=== PATIENT | male | born 1955 | race Caucasian/White ===

== ENCOUNTER 2017-08-02 08:17 | Emergency (ER) | payer OTHER ==
[~2017-08-02] VITALS: Ht 172.7 cm; Wt 60.1 kg
[2017-08-02 08:25] VITALS: TEMP 37.1; Ht 172.7 cm; Wt 60.1 kg
[2017-08-02 09:02] LABS: BASO % 0.6 %; BASO ABS # 0.04 K/uL (0-0.2); COMPLETE YES; EOS % 3.4 %; HEMATOCRIT 41.6 % (42-52); IG% 0.3 %; LYMPH % 24.6 %; LYMPH ABS # 1.67 K/uL (1.2-3.4); MEAN CELL VOLUME 91.4 fL (80-100); MEAN CORPUSCULAR HEMOGLOBIN 32.1 pg (25-34); MEAN CORPUSCULAR HGB CONC 35.1 g/dl (32-36); MEAN PLATELET VOLUME 9.7 fL (7.4-10.4); MONO % 11.4 %; NEUT % 59.7 %; PLATELET COUNT 257 K/uL (130-400); RED BLOOD COUNT 4.55 M/uL (4.7-6.1); WHITE BLOOD COUNT 6.78 K/uL (4.8-10.8)
[2017-08-02 09:10] LABS: BUN/CREATININE RATIO 17.7 (10-20); CALCIUM 9.6 mg/dl (8.5-10.1); CREATININE 0.82 mg/dl (0.60-1.40); POTASSIUM 3.7 mmol/L (3.5-5.1)
[2017-08-02 09:11] LABS: C-REACTIVE PROTEIN 0.82 mg/dl (0-0.29)
--- NOTE | 2017-08-02 09:35 | DIAGNOSTIC IMAGING REPORT ---
LEFT KNEE 3 VIEWS HISTORY: 61 years-old Male left knee pain, no injury acute left knee pain without reported trauma. COMPARISON: None available TECHNIQUE: 3 views of the left knee FINDINGS: Mild medial and patellofemoral compartment osteoarthritis is noted with no significant degenerative changes of the lateral compartment. Mild medial soft tissue swelling is noted. There is a questioned 2 mm loose body of the medial patellofemoral joint. No large joint effusion. No acute fracture or dislocation. IMPRESSION: 1. Mild medial soft tissue swelling without acute fracture or dislocation. 2. Mild medial and patellofemoral compartment osteoarthritis with suggested 2 mm loose body of the medial patellofemoral joint. The above report was generated using voice recognition software. It may contain grammatical, syntax or spelling errors. Electronically signed by: Ronak Machdao M.D. 08/02/2017 9:33 AM Dictated Date/Time: 08/02/2017 9:31 AM
--- NOTE | 2017-08-02 10:02 | DIAGNOSTIC IMAGING REPORT ---
BILATERAL LOWER EXTREMITY VENOUS DOPPLER HISTORY: Acute left lower extremity pain and swelling. left knee pain, no injury. Initial exam. COMPARISON STUDY: None. FINDINGS: There is normal compressibility, flow, and augmentation within the left lower extremity deep venous system. IMPRESSION: No sonographic evidence of deep venous thrombosis within the left lower extremity. Electronically signed by: Ronak Machado M.D. 08/02/2017 10:01 AM Dictated Date/Time: 08/02/2017 9:59 AM
[2017-08-02] MEDS ORDERED: CEFTRIAXONE SOD INJ 1 GM ADDVIAL IV STA (10:40)
[2017-08-02] MEDS ORDERED: CEPH500C PO (10:42)
--- NOTE | 2017-08-02 10:43 | EMERGENCY ROOM VISIT NOTE ---
History First contact with patient: 08:27 Chief Complaint: KNEEPAIN Stated Complaint: LEFT KNEE PAIN History of Present Illness The patient is a 61 year old male who presents to the Emergency Room with complaints of left knee pain. The patient states that his knee "won't work." The patient reports he has had pain in the left knee for the past 3 days which has been gradually worsening. He states he has had swelling in the knee and difficulty walking. He denies any specific injury to the knee. He denies any history of knee problems or gout. He rates his discomfort an 8/10. He states the area feels warm to touch. He denies any fevers. Review of Systems A complete 10 point review of systems was reviewed with the patient with pertinent positives and negatives as per history of present illness. All else were negative. Social History Smoking Status: Former Smoker Current/Historical Medications Scheduled Cephalexin Monohydrate (Keflex), 500 MG PO QID Physical Exam Vital Signs Date Time Temp Pulse Resp B/P (MAP) Pulse Ox O2 Delivery O2 Flow Rate FiO2 08/02/17 11:09 71 16 157/86 100 08/02/17 10:43 64 16 153/76 98 Room Air 08/02/17 10:15 62 16 144/78 98 08/02/17 08:25 37.1 73 20 183/81 96 Room Air Physical Exam VITALS: Vitals are noted on the nurse's note and reviewed by myself. Vital signs stable. GENERAL: This is a 61-year-old male, in no acute distress, nondiaphoretic, well- developed well-nourished. SKIN: There is erythema and warmth extending from the medial aspect of the left knee down the left lower leg. It is not circumferential. HEART: Regular rate and rhythm without murmurs gallops or rubs. LUNGS: Clear to auscultation bilaterally without wheezes, rales or rhonchi. MUSCULOSKELETAL: No effusion of the left knee. No erythema or warmth of the knee joint itself. Full range of motion of the knee. NEURO: Patient was alert and oriented to person place and time. Normal sensation to light and sharp touch. Medical Decision & Procedures ER Provider Diagnostic Interpretation: LEFT KNEE 3 VIEWS FINDINGS: Mild medial and patellofemoral compartment osteoarthritis is noted with no significant degenerative changes of the lateral compartment. Mild medial soft tissue swelling is noted. There is a questioned 2 mm loose body of the medial patellofemoral joint. No large joint effusion. No acute fracture or dislocation. IMPRESSION: 1. Mild medial soft tissue swelling without acute fracture or dislocation. 2. Mild medial and patellofemoral compartment osteoarthritis with suggested 2 mm loose body of the medial patellofemoral joint. LOWER EXTREMITY VENOUS DOPPLER FINDINGS: There is normal compressibility, flow, and augmentation within the left lower extremity deep venous system. IMPRESSION: No sonographic evidence of deep venous thrombosis within the left lower extremity. Laboratory Results 08/02/17 08:43 Red Blood Count 4.55, Mean Corpuscular Volume 91.4, Mean Corpuscular Hemoglobin 32.1, Mean Corpuscular Hemoglobin Concent 35.1, Mean Platelet Volume 9.7, Neutrophils (%) (Auto) 59.7, Lymphocytes (%) (Auto) 24.6, Monocytes (%) (Auto) 11.4, Eosinophils (%) (Auto) 3.4, Basophils (%) (Auto) 0.6, Neutrophils # (Auto ) 4.05, Lymphocytes # (Auto) 1.67, Monocytes # (Auto) 0.77, Eosinophils # (Auto ) 0.23, Basophils # (Auto) 0.04 08/02/17 08:43 Test 08/02/17 08:43 White Blood Count 6.78 K/uL (4.8-10.8) Red Blood Count 4.55 M/uL (4.7-6.1) Hemoglobin 14.6 g/dL (14.0-18.0) Hematocrit 41.6 % (42-52) Mean Corpuscular Volume 91.4 fL (80-100) Mean Corpuscular Hemoglobin 32.1 pg (25-34) Mean Corpuscular Hemoglobin Concent 35.1 g/dl (32-36) Platelet Count 257 K/uL (130-400) Mean Platelet Volume 9.7 fL (7.4-10.4) Neutrophils (%) (Auto) 59.7 % Lymphocytes (%) (Auto) 24.6 % Monocytes (%) (Auto) 11.4 % Eosinophils (%) (Auto) 3.4 % Basophils (%) (Auto) 0.6 % Neutrophils # (Auto) 4.05 K/uL (1.4-6.5) Lymphocytes # (Auto) 1.67 K/uL (1.2-3.4) Monocytes # (Auto) 0.77 K/uL (0.11-0.59) Eosinophils # (Auto) 0.23 K/uL (0-0.5) Basophils # (Auto) 0.04 K/uL (0-0.2) RDW Standard Deviation 39.4 fL (36.4-46.3) RDW Coefficient of Variation 11.8 % (11.5-14.5) Immature Granulocyte % (Auto) 0.3 % Immature Granulocyte # (Auto) 0.02 K/uL (0.00-0.02) Erythrocyte Sedimentation Rate 2 mm/hr (0-14) Anion Gap 7.0 mmol/L (3-11) Est Creatinine Clear Calc Drug Dose 78.4 ml/min Estimated GFR () 109.1 Estimated GFR (Non- 94.1 BUN/Creatinine Ratio 17.7 (10-20) Calcium Level 9.6 mg/dl (8.5-10.1) C-Reactive Protein 0.82 mg/dl (0-0.29) Medications Administered Medications (Trade) Dose Ordered Sig/Syed Route Start Time Stop Time Status Last Admin Dose Admin Ceftriaxone Sodium (Rocephin Inj) 1 gm NOW STAT IV 08/02/17 10:40 08/02/17 10:42 DC 08/02/17 10:47 1 GM Cephalexin Monohydrate (Keflex 500MG Home Pack) 1 homepack NOW ONCE PO 08/02/17 10:45 08/02/17 10:46 DC 08/02/17 10:48 1 HOMEPACK ED Course The patient was evaluated as above. Labs were drawn and IV access was obtained. Imaging studies were performed and read by radiology as above. Patient was reevaluated and findings were discussed. 1 g Rocephin was ordered. Discharge instructions were reviewed with the patient. The patient verbalized understanding of my assessment and treatment plan and was discharged home in good condition. Medical Decision Differential diagnosis includes cellulitis, septic joint, gout, knee sprain, ligamentous injury, among others. The patient is a 61-year-old male who presents today complaining of left knee pain. Labs were unremarkable. No leukocytosis. CRP was minimally elevated, ESR within normal limits. X-ray showed questionable loose foreign body without other acute findings. Ultrasound showed no evidence of DVT. Patient does not appear to have a septic joint on exam. On initial evaluation, he had some vague mild redness of the medial knee, however on reevaluation he appeared to have a well delineated cellulitis. He was given 1 g Rocephin and will be prescribed Keflex. The area of erythema was outlined with a skin marker. He was instructed to return here for worsening of his current condition. I recommended that he follow-up with his primary care provider in 48 hours for a recheck. Based on the patient's presentation and work up, I feel the patient is stable for outpatient treatment. The patient was educated to return to the emergency department for any worsening of their current condition or new/concerning symptoms. He will follow up with his PCP. The patient's case was reviewed with Dr. Yanez, ED attending physician, who agreed with my assessment and treatment plan. Medication Reconcilliation Current Medication List: was personally reviewed by me Blood Pressure Screening Patient's blood pressure: Elevated blood pressure Blood pressure disposition: Elevated BP felt to be situational Impression Primary Impression: Cellulitis of left leg Departure Information Dispostion Home / Self-Care Condition GOOD Prescriptions Cephalexin Monohydrate (Keflex) 500 Mg Cap 500 MG PO QID for 10 Days, #40 CAP Prov: Monik Dumont ., ALISHA 08/02/17 Referrals Mal Hernandez, D.O. (PCP) Patient Instructions My [facility] Additional Instructions You were prescribed Keflex to be taken 4 times daily as prescribed. This is an antibiotic. All antibiotics have the potential to cause diarrhea. Stop this medication and contact a medical provider if you were to develop any significant adverse side effects including: wheezing, shortness of breath, passing out, vomiting, or a diffuse rash. Always take antibiotics as directed and COMPLETE the ENTIRE course regardless of the improvement of your symptoms. For pain control, you can use the following upwa-hra-oxrtcke medicines (if >12 yo): - Regular strength (325mg/tab) Tylenol (acetaminophen) 2 tabs every 4-6 hours as needed. Do not exceed 12 tablets in a 24 hour period. Avoid taking more than 4 grams (4000 mg) of Tylenol per day. This includes any other sources of acetaminophen you may take on a regular basis. - Regular strength (200 mg/tab) Advil (ibuprofen) 1-2 tabs every 4-6 hours as needed. Do not exceed a dose of 3200 mg per day. Rest off the knee as much as possible. Follow-up with your primary care provider in 48 hours for a recheck. Return here for worsening redness, swelling of the knee joint, fevers, or any other new/concerning symptoms.
[2017-08-02] MEDS ORDERED: CEPHALEXIN 500MG HOME PACK 1 EA BTL PO ONE (10:45)
[2017-08-02 11:09] VITALS: BP 157/86; PULSE 71; O2SAT 100
== END 2017-08-02 11:11 | disposition home or self-care (01) ==
LOC: C.EDB 08:18 → C.EDA 11:11
DX: L03.116 Cellulitis of left lower limb (principal); Z87.891 Personal history of nicotine dependence